=== PATIENT | female | born 1945 | race Hispanic/Latino ===

== ENCOUNTER → 2017-11-21 | Outpatient (CLI) | payer OTHER ==
[~2017-11-21] MED LIST: AMLO5TAB2 PO; CLOP75TA14 PO; EZET10TA26 PO; LEVO50TA4 PO; LOSA100T29 PO; OXYB5TAB PO; PANT40TA25 PO
== END | disposition home or self-care (01) ==
LOC: RAH 15:38
PROVIDERS: ATTEND Family Medicine
DX: Z12.31 Encounter for screening mammogram for malignant neoplasm of breast (principal)
CPT/HCPCS: 77067

== ENCOUNTER 2018-01-24 06:34 | Inpatient (IN) | payer OTHER ==
[~2018-01-24] VITALS: Ht 149.9 cm; Wt 68.7 kg
[2018-01-24] VITALS (15 sets, daily range): BP systolic 94–126; BP diastolic 42–57
[2018-01-24] MEDS ORDERED: ACETAMINOPHEN 325 MG TAB ONE ×2 (07:09→20:45)
[2018-01-24 07:15] LABS: BASOPHILS % (AUTO) 0.5 % (0.0-5.0); EOSINOPHILS % (AUTO) 0.2 % (0.0-8.0); HEMATOCRIT 33.1 % (36-48); LYMPHOCYTES % (AUTO) 21.9 % (21.0-51.0); MEAN CORPUSCULAR HEMOGLOBIN 30.8 pg (27.0-33.0); MEAN CORPUSCULAR HGB CONC 34.1 g/dL (32.0-36.0); MEAN CORPUSCULAR VOLUME 90.4 fL (79-99); NEUTROPHILS % (AUTO) 76.4 % (40.0-77.0); PLATELET COUNT (AUTO) 239 K/uL (130-400); RED BLOOD CELL COUNT(AUTO) 3.66 MIL/uL (4.00-5.50); RED CELL DISTRIBUTION WIDTH 13.4 % (11.0-15.5); WHITE BLOOD COUNT (AUTO) 3.8 K/uL (4.8-10.8)
[2018-01-24 07:17] LABS: APPEARANCE,URINE Clear (CLEAR); BILIRUBIN,URINE Negative (NEGATIVE); COLOR,URINE Yellow (YELLOW); GLUCOSE, URINE (UA) Negative (NEGATIVE); KETONES,URINE Negative (NEGATIVE); LEUKOCYTE ESTERASE ,URINE Small (NEGATIVE); NITRATE,URINE Negative (NEGATIVE); OCCULT BLOOD,URINE Moderate (NEGATIVE); PH,URINE 6.5 (5.0-8.0); PROTEIN,URINE POS 2+ (NEGATIVE); UROBILINOGEN,URINE 0.2 mg/dL (0.2-1.0)
[2018-01-24 07:24] LABS: CREATININE 1.1 mg/dL (0.5-1.5); POTASSIUM 3.7 mmol/L (3.5-5.1)
[2018-01-24 07:27] LABS: INR 1.01 (0.85-1.15); PARTIAL THROMBOPLASTIN TIME 26.3 SEC (26.3-35.5); PROTHROMBIN TIME 10.6 SEC (9.6-11.6)
[2018-01-24] MEDS ORDERED: CEFTRIAXONE SODIUM 1 GM ONE (07:29)
[2018-01-24] MEDS ORDERED: SODIUM CHLORIDE 0.9% 100 ML IV ONE (07:29)
[2018-01-24 07:36] LABS: BACTERIA,URINE Few /HPF (None Seen); SQUAMOUS EPITHELIAL CELL,UR Rare /HPF (0-2)
[2018-01-24 07:39] LABS: ALBUMIN 3.4 g/dL (3.5-5.0); BILIRUBIN,TOTAL 0.8 mg/dL (0.2-1.0); TOTAL PROTEIN, SERUM 6.8 g/dL (6.0-8.3); TROPONIN I 0.16 ng/mL (0.00-0.06)
[2018-01-24] MEDS ORDERED: SODIUM CHLORIDE 0.9% 1000ML 2,000 ML IV ONE (08:40)
[2018-01-24] MEDS ORDERED: SODIUM CHLORIDE 0.9% 250 ML IV ONE (11:11)
[2018-01-24] MEDS ORDERED: NOREPINEPHRINE BITARTRATE 1 MG/1 ML ML IV ONE (11:11)
[2018-01-24] MEDS ORDERED: PHENYLEPHRINE HCL 10 MG/ML 1ML VIAL IV ONE (13:30)
[2018-01-24] MEDS ORDERED: LACTATED RINGERS 1000ML IV ONE (15:30)
[2018-01-24] MEDS ORDERED: LEVO50TA4 PO (18:04)
[2018-01-24] MEDS ORDERED: OXYB5TAB PO (18:04)
[2018-01-24] MEDS ORDERED: PANT40TA25 PO (18:04)
[2018-01-24] MEDS ORDERED: AMLO5TAB2 PO (18:04)
[2018-01-24] MEDS ORDERED: EZET10TA26 PO (18:04)
[2018-01-24] MEDS ORDERED: CLOP75TA14 PO (18:04)
[2018-01-24] MEDS ORDERED: LOSA100T29 PO (18:06)
[2018-01-24] MEDS ORDERED: ONDANSETRON HCL MDV 20ML 2 MG/ML VIAL IVP PRN (20:30)
[2018-01-24] MEDS: SODIUM CHLORIDE 0.9% 1000ML 1,000 ML IV SCH (20:30)
[2018-01-24] MEDS ORDERED: POTASSIUM CHLORIDE 20MEQ/100ML 100 ML IV PRN (20:30)
[2018-01-24] MEDS ORDERED: POTASSIUM CHLORIDE 10% ELIXIR 20 MEQ/15 ML UDCUP PO PRN (20:30)
[2018-01-24] MEDS ORDERED: LIDOCAINE HCL-MPF 1% 2ML VIAL IVP PRN (20:30)
[2018-01-24] MEDS ORDERED: SODIUM CHLORIDE 0.9% 1000ML 1,000 ML IV ONE (20:45)
[2018-01-24] MEDS ORDERED: METRONIDAZOLE 500MG/100ML BAG 100 ML IVPB SCH (21:00)
[2018-01-24] MEDS ORDERED: LEVOFLOXACIN 500 MG/D5W 100 ML 100 ML IV SCH (21:00)
[2018-01-24] MEDS ORDERED: NOREPINEPHRINE 4MG/NS 250ML 250 ML IV SCH (21:15)
[2018-01-24] MEDS ORDERED: LACTATED RINGERS 1000ML 1,000 ML IV SCH (21:15)
[2018-01-24] MEDS ORDERED: SODIUM BICARB 50MEQ 50ML VIAL IV SCH (21:15)
[2018-01-25] VITALS (16 sets, daily range): BP systolic 92–156; BP diastolic 35–101
[2018-01-25] MEDS: SODIUM CHLORIDE 0.9% 1000ML 1,000 ML IV SCH ×2 (05:50→21:53)
[2018-01-25] MEDS: LEVOTHYROXINE 50 MCG TABLET PO SCH (05:51)
[2018-01-25] MEDS ORDERED: CEFTRIAXONE 1GM/D5W 50ML 50 ML IV SCH (08:00)
[2018-01-25] MEDS: ACETAMINOPHEN 325 MG TAB PO PRN ×2 (09:01→20:19)
[2018-01-25] MEDS: CLOPIDOGREL BISULFATE 75 MG TAB PO SCH (09:02)
[2018-01-25] MEDS: CEFTRIAXONE SODIUM 1 GM IVP SCH (09:02)
[2018-01-25 20:32] LABS: MEAN CORPUSCULAR HEMOGLOBIN 31.9 pg (27.0-33.0); MEAN CORPUSCULAR HGB CONC 35.5 g/dL (32.0-36.0); MEAN CORPUSCULAR VOLUME 89.8 fL (79-99); PLATELET COUNT (AUTO) 202 K/uL (130-400); RED BLOOD CELL COUNT(AUTO) 3.56 MIL/uL (4.00-5.50); RED CELL DISTRIBUTION WIDTH 13.4 % (11.0-15.5); WHITE BLOOD COUNT (AUTO) 9.6 K/uL (4.8-10.8)
[2018-01-25 20:49] LABS: ALBUMIN 2.8 g/dL (3.5-5.0); BILIRUBIN,TOTAL 0.3 mg/dL (0.2-1.0); CREATININE 0.8 mg/dL (0.5-1.5); POTASSIUM 3.1 mmol/L (3.5-5.1); TOTAL PROTEIN, SERUM 6.8 g/dL (6.0-8.3)
[2018-01-25 20:50] LABS: LYMPHOCYTES % (MANUAL) 5 % (22-44); MONOCYTES % (MANUAL) 4 % (2-9); PLATELET MORPHOLOGY COMMENT ADEQUATE; REACTIVE LYMPHOCYTES 4 % (0-0); SEGMENTED NEUTROPHILS % 87 % (40-70)
[2018-01-26 04:00] VITALS: BP 142/69
[2018-01-26] MEDS: LEVOTHYROXINE 50 MCG TABLET PO SCH (07:07)
[2018-01-26] MEDS: CEFTRIAXONE SODIUM 1 GM IVP SCH (07:59)
[2018-01-26] MEDS: CLOPIDOGREL BISULFATE 75 MG TAB PO SCH (07:59)
[2018-01-26 08:12] VITALS: BP 143/68
[2018-01-26 11:28] VITALS: BP 146/75
[2018-01-26] MEDS: SODIUM CHLORIDE 0.9% 1000ML 1,000 ML IV SCH (11:37)
== END 2018-01-26 14:00 | disposition home or self-care (01) | DRG 872 ==
LOC: EDH 06:34 → EDHIP 11:28 → 2BH 13:14 → 2AH 01-25 15:49
PROVIDERS: ADMIT Internal Medicine Nephrology; ATTEND Internal Medicine Nephrology
DX: A41.9 Sepsis, unspecified organism (principal); E86.0 Dehydration; D64.9 Anemia, unspecified; N39.0 Urinary tract infection, site not specified; R74.8 Abnormal levels of other serum enzymes; E78.5 Hyperlipidemia, unspecified; I10 Essential (primary) hypertension; Z60.2 Problems related to living alone
CPT/HCPCS: 36415; 71045; 71046; 80053; 81001; 82550; 82553; 83605; 83874; 84484; 85025; 85610; 85730; 87040; 87088; 87186; 93005; A4218; J0696; J2370; J3490; J7030

== ENCOUNTER → 2018-02-17 | Outpatient (CLI) | payer OTHER | END | disposition home or self-care (01) | LOC: SHCH 12:20 | PROVIDERS: ATTEND Internal Medicine Cardiovascular Disease | DX: I73.9 Peripheral vascular disease, unspecified (principal); I87.2 Venous insufficiency (chronic) (peripheral); R06.02 Shortness of breath | CPT/HCPCS: 93306; 93925; 93970 ==

== ENCOUNTER → 2018-07-21 | Outpatient (CLI) | payer OTHER ==
[~2018-07-21] MED LIST changes: -AMLO5TAB2 PO; +AMLO5TAB7 PO; +ASPI-555 PO; +CHOL400C9 PO; +LOSA100T20 PO; -LOSA100T29 PO; +UBID10CA6 PO
== END | disposition home or self-care (01) ==
LOC: SHCH 10:41
PROVIDERS: ATTEND Internal Medicine Cardiovascular Disease
DX: I73.9 Peripheral vascular disease, unspecified (principal)
CPT/HCPCS: 93925

== ENCOUNTER → 2018-11-23 | Outpatient (CLI) | payer OTHER ==
[~2018-11-23] MED LIST changes: -AMLO5TAB7 PO; +AMLO5TAB9 PO; -LOSA100T20 PO; +LOSA100T58 PO
== END | disposition home or self-care (01) ==
LOC: RAH 10:07
PROVIDERS: ATTEND Family Medicine
DX: Z12.31 Encounter for screening mammogram for malignant neoplasm of breast (principal)
CPT/HCPCS: 77067

== ENCOUNTER → 2018-12-01 | Outpatient (CLI) | payer OTHER | END | disposition home or self-care (01) | LOC: SHCH 14:39 | PROVIDERS: ATTEND Internal Medicine Cardiovascular Disease | DX: I73.9 Peripheral vascular disease, unspecified (principal) | CPT/HCPCS: 93925 ==

== ENCOUNTER → 2018-12-18 | Outpatient (CLI) | payer OTHER | END | disposition home or self-care (01) | LOC: SHCH 07:38 | PROVIDERS: ATTEND Internal Medicine Cardiovascular Disease | DX: I71.4 Abdominal aortic aneurysm, without rupture (principal) | CPT/HCPCS: 93978 ==

== ENCOUNTER 2019-07-16 19:41 | Observation (INO) | payer OTHER ==
[~2019-07-16 19:41] MED LIST changes: -EZET10TA26 PO; +EZET10TA48 PO; -OXYB5TAB PO; +OXYB5TAB4 PO
[2019-07-16 20:01] LABS: BASOPHILS % (AUTO) 0.7 % (0.0-5.0); EOSINOPHILS % (AUTO) 1.1 % (0.0-8.0); HEMATOCRIT 37.9 % (36-48); LYMPHOCYTES % (AUTO) 28.6 % (21.0-51.0); MEAN CORPUSCULAR HEMOGLOBIN 31.3 pg (27.0-33.0); MEAN CORPUSCULAR HGB CONC 34.2 g/dL (32.0-36.0); MEAN CORPUSCULAR VOLUME 91.7 fL (79-99); MONOCYTES % (AUTO) 8.8 % (3.0-13.0); NEUTROPHILS % (AUTO) 60.8 % (40.0-77.0); NUCLEATED RED BLOOD CELLS 0.2 % (0.0-0.19); PLATELET COUNT (AUTO) 261 K/uL (130-400); RED BLOOD CELL COUNT(AUTO) 4.14 MIL/uL (4.00-5.50); RED CELL DISTRIBUTION WIDTH 13.2 % (11.0-15.5); WHITE BLOOD COUNT (AUTO) 9.8 K/uL (4.8-10.8)
[2019-07-16 20:11] LABS: INR 0.96 (0.85-1.15); PARTIAL THROMBOPLASTIN TIME 26.6 SEC (26.3-35.5); PROTHROMBIN TIME 10.1 SEC (9.6-11.6)
[2019-07-16 20:21] LABS: CREATININE 1.2 mg/dL (0.5-1.5); POTASSIUM 3.9 mmol/L (3.5-5.1)
[2019-07-16] MEDS ORDERED: ASPIRIN 325 MG TABLET ONE (20:24)
[2019-07-16] MEDS ORDERED: NITROGLYCERIN 1GM/1 INCH PACKET TD ONE (20:25)
[2019-07-16 20:26] LABS: BILIRUBIN,TOTAL 0.7 mg/dL (0.2-1.0); TOTAL PROTEIN, SERUM 8.8 g/dL (6.0-8.3)
[2019-07-16 20:30] LABS: B-TYPE NATRIURETIC PEPTIDE 50 pg/mL (0-100)
[2019-07-16 21:08] LABS: APPEARANCE,URINE Clear (CLEAR); BILIRUBIN,URINE Negative (NEGATIVE); COLOR,URINE Yellow (YELLOW); GLUCOSE, URINE (UA) Negative (NEGATIVE); KETONES,URINE Negative (NEGATIVE); LEUKOCYTE ESTERASE ,URINE Small (NEGATIVE); NITRATE,URINE Negative (NEGATIVE); OCCULT BLOOD,URINE Small (NEGATIVE); PH,URINE 5.5 (5.0-8.0); PROTEIN,URINE Negative (NEGATIVE); UROBILINOGEN,URINE 0.2 mg/dL (0.2-1.0)
[2019-07-16 21:21] LABS: BACTERIA,URINE Few /HPF (None Seen); MUCUS,URINE None Seen LPF (None Seen)
[2019-07-16] MEDS ORDERED: POTASSIUM CHLORIDE 20 MEQ ERTAB PO PRN (21:30)
[2019-07-16] MEDS ORDERED: DiphenhydrAMINE HCL 50 MG/ML VIAL IV PRN (21:30)
[2019-07-16] MEDS ORDERED: POTASSIUM CHLORIDE 10% ELIXIR 20 MEQ/15 ML UDCUP PO PRN (21:30)
[2019-07-16] MEDS ORDERED: NITROGLYCERIN 0.4 MG SL TAB SL PRN (21:30)
[2019-07-16] MEDS ORDERED: ONDANSETRON HCL 4 MG/2 ML VIAL IV PRN (21:30)
[2019-07-16] MEDS ORDERED: MORPHINE SULFATE 2 MG/ML 1ML SYG IV PRN (21:30)
[2019-07-16] MEDS ORDERED: MAGNESIUM 2GM PREMIX 50ML 50 ML IV PRN (21:30)
[2019-07-16] MEDS ORDERED: CEFTRIAXONE SODIUM 1 GM IVP SCH (21:30)
[2019-07-16] MEDS ORDERED: POTASSIUM CHLORIDE 20MEQ/100ML 100 ML IV PRN (21:30)
[2019-07-16] MEDS ORDERED: ACETAMINOPHEN 325 MG TAB PO PRN (21:30)
[2019-07-16] MEDS ORDERED: LACTULOSE 20 GM/30 ML UDCUP PO PRN (21:30)
[2019-07-16] MEDS ORDERED: DIPHENHYDRAMINE HCL 25 MG CAPSULE PO PRN (21:30)
[2019-07-16] MEDS ORDERED: HYDRALAZINE HCL 20 MG/ML VIAL IV PRN (21:30)
[2019-07-17] MEDS ORDERED: INSULIN HUMULIN R 100 UNIT/ML 3ML SQ SCH (07:30)
== END 2019-07-16 22:38 | disposition left against medical advice (07) ==
LOC: EDH 19:41 → EDHIP 21:20 → 3DH 21:53
PROVIDERS: ADMIT Internal Medicine Critical Care Medicine; ATTEND Internal Medicine Critical Care Medicine
DX: R07.89 Other chest pain (principal); I25.10 Atherosclerotic heart disease of native coronary artery without angina pectoris; I10 Essential (primary) hypertension; E78.5 Hyperlipidemia, unspecified; E03.9 Hypothyroidism, unspecified; Z95.5 Presence of coronary angioplasty implant and graft; Z87.891 Personal history of nicotine dependence; Z79.899 Other long term (current) drug therapy
CPT/HCPCS: 36415; 71045; 80053; 81001; 82550; 83605; 83880; 85025; 85610; 85730; 87040 ×2; 87077; 87088; 87186; 87804 ×2; 93005; 99284; G0378

== ENCOUNTER → 2019-09-22 | Outpatient (CLI) | payer OTHER ==
[~2019-09-22] MED LIST changes: +OXYB-66 PO; -OXYB5TAB4 PO
== END | disposition home or self-care (01) ==
LOC: SHCH 14:46
PROVIDERS: ATTEND Internal Medicine Cardiovascular Disease
DX: I70.203 Unspecified atherosclerosis of native arteries of extremities, bilateral legs (principal); I65.23 Occlusion and stenosis of bilateral carotid arteries
CPT/HCPCS: 93880; 93925

== ENCOUNTER → 2019-11-24 | Outpatient (CLI) | payer OTHER | END | disposition home or self-care (01) | LOC: SHCH 07:52 | PROVIDERS: ATTEND Internal Medicine Cardiovascular Disease | DX: I70.0 Atherosclerosis of aorta (principal); I71.4 Abdominal aortic aneurysm, without rupture | CPT/HCPCS: 93978 ==

== ENCOUNTER → 2019-11-26 | Outpatient (CLI) | payer OTHER | END | disposition home or self-care (01) | LOC: RAH 08:04 | PROVIDERS: ATTEND Family Medicine | DX: N28.1 Cyst of kidney, acquired (principal) | CPT/HCPCS: 76700 ==

== ENCOUNTER → 2019-12-02 | Outpatient (CLI) | payer OTHER ==
[~2019-12-02] MED LIST changes: +AMLO-257 PO; -AMLO5TAB9 PO; -ASPI-555 PO; +ASPI-556 PO; -PANT40TA25 PO; +PANT40TA55 PO
== END | disposition home or self-care (01) ==
LOC: RAH 08:38
PROVIDERS: ATTEND Family Medicine
DX: Z12.31 Encounter for screening mammogram for malignant neoplasm of breast (principal)
CPT/HCPCS: 77067

== ENCOUNTER → 2020-06-06 | Outpatient (CLI) | payer OTHER | END | disposition home or self-care (01) | LOC: RAH 10:23 | PROVIDERS: ATTEND Family Medicine | DX: K40.90 Unilateral inguinal hernia, without obstruction or gangrene, not specified as recurrent (principal); K57.30 Diverticulosis of large intestine without perforation or abscess without bleeding; N28.9 Disorder of kidney and ureter, unspecified; R63.4 Abnormal weight loss | CPT/HCPCS: 74176 ==

== ENCOUNTER → 2020-10-12 | Outpatient (CLI) | payer OTHER | END | disposition home or self-care (01) | LOC: SHCH 14:07 | PROVIDERS: ATTEND Internal Medicine Cardiovascular Disease | DX: I73.9 Peripheral vascular disease, unspecified (principal) | CPT/HCPCS: 93925 ==

== ENCOUNTER → 2021-02-12 | Outpatient (CLI) | payer OTHER ==
[2021-02-12 09:05] LABS: BASOPHILS % (AUTO) 0.9 % (0.0-5.0); EOSINOPHILS % (AUTO) 1.6 % (0.0-8.0); LYMPHOCYTES % (AUTO) 34.4 % (21.0-51.0); MEAN CORPUSCULAR HEMOGLOBIN 29.6 pg (27.0-33.0); MEAN CORPUSCULAR HGB CONC 32.2 g/dL (32.0-36.0); MEAN CORPUSCULAR VOLUME 91.9 fL (79-99); MONOCYTES % (AUTO) 6.4 % (3.0-13.0); NEUTROPHILS % (AUTO) 56.2 % (40.0-77.0); PLATELET COUNT (AUTO) 270 K/uL (130-400); RED BLOOD CELL COUNT(AUTO) 4.46 MIL/uL (4.00-5.50); RED CELL DISTRIBUTION WIDTH 13.3 % (11.0-15.5); WHITE BLOOD COUNT (AUTO) 5.8 K/uL (4.8-10.8)
[2021-02-12 09:12] LABS: CREATININE 0.8 mg/dL (0.5-1.5)
== END | disposition home or self-care (01) ==
LOC: LAB 08:33
PROVIDERS: ATTEND Urology
DX: R31.29 Other microscopic hematuria (principal)
CPT/HCPCS: 36415; 80048; 85025

== ENCOUNTER → 2021-02-19 | Outpatient (CLI) | payer OTHER ==
[~2021-02-19] MED LIST changes: +IOHEXOL 350 MG/ML 100ML INFUS..BTL IV ONE
== END | disposition home or self-care (01) ==
LOC: RAH 07:15
PROVIDERS: ATTEND Urology
DX: N26.1 Atrophy of kidney (terminal) (principal); N28.1 Cyst of kidney, acquired; K57.30 Diverticulosis of large intestine without perforation or abscess without bleeding; K40.90 Unilateral inguinal hernia, without obstruction or gangrene, not specified as recurrent
CPT/HCPCS: 74178; Q9967

== ENCOUNTER 2021-12-08 17:31 | Emergency (ER) | payer OTHER, MEDICARE ==
[~2021-12-08] VITALS: Ht 137.2 cm; Wt 66.2 kg
[~2021-12-08 17:31] MED LIST changes: -IOHEXOL 350 MG/ML 100ML INFUS..BTL IV ONE
[2021-12-08] MEDS ORDERED: TRAMADOL HCL 50 MG TABLET PO ONE (18:30)
[2021-12-08] MEDS ORDERED: KETOROLAC 15MG/ML VIAL (15MG/ML) IM ONE (18:30)
[2021-12-08 19:19] VITALS: BP 134/63
[2021-12-08] MEDS ORDERED: TRAM50TA2 PO (19:22)
== END 2021-12-08 19:34 | disposition home or self-care (01) ==
LOC: EDH 17:31
DX: M25.511 Pain in right shoulder (principal); I10 Essential (primary) hypertension; Z79.1 Long term (current) use of non-steroidal anti-inflammatories (NSAID); Z79.82 Long term (current) use of aspirin; Z79.899 Other long term (current) drug therapy
CPT/HCPCS: 73030; 96372; 99283; J1885

== ENCOUNTER → 2021-12-28 | Outpatient (CLI) | payer OTHER ==
[~2021-12-28] MED LIST changes: +TRAM50TA2 PO
== END | disposition home or self-care (01) ==
LOC: RAH 10:17
PROVIDERS: ATTEND Family Medicine
DX: Z12.31 Encounter for screening mammogram for malignant neoplasm of breast (principal)
CPT/HCPCS: 77067

== ENCOUNTER → 2022-01-30 | Outpatient (CLI) | payer OTHER, MEDICARE | END | disposition home or self-care (01) | LOC: SHCH 09:46 | PROVIDERS: ATTEND Internal Medicine Cardiovascular Disease | DX: I70.293 Other atherosclerosis of native arteries of extremities, bilateral legs (principal); I65.23 Occlusion and stenosis of bilateral carotid arteries | CPT/HCPCS: 93880; 93925 ==

== ENCOUNTER → 2022-04-15 | Outpatient (CLI) | payer OTHER, MEDICARE ==
[~2022-04-15] VITALS: Ht 147.3 cm; Wt 67.6 kg
[~2022-04-15] MED LIST changes: +REGADENOSON 0.4 MG/5 ML PF SYG IVP SCH
== END | disposition home or self-care (01) ==
LOC: SHCH 08:19
PROVIDERS: ATTEND Internal Medicine Cardiovascular Disease
DX: R07.9 Chest pain, unspecified (principal)
CPT/HCPCS: 78452; 96374; 93017; J2785; A9500 ×2

== ENCOUNTER → 2022-05-07 | Outpatient (CLI) | payer OTHER, MEDICARE ==
[~2022-05-07] MED LIST changes: -REGADENOSON 0.4 MG/5 ML PF SYG IVP SCH
== END | disposition home or self-care (01) ==
LOC: RAH 14:09
PROVIDERS: ATTEND Family Medicine
DX: M47.815 Spondylosis without myelopathy or radiculopathy, thoracolumbar region (principal); R91.1 Solitary pulmonary nodule; N28.1 Cyst of kidney, acquired; I25.10 Atherosclerotic heart disease of native coronary artery without angina pectoris; K57.92 Diverticulitis of intestine, part unspecified, without perforation or abscess without bleeding
CPT/HCPCS: 71250

== ENCOUNTER → 2022-12-14 | Outpatient (CLI) | payer OTHER, MEDICARE ==
[~2022-12-14] MED LIST changes: +CLOP-31 PO; -CLOP75TA14 PO
== END | disposition home or self-care (01) ==
LOC: SHCH 15:12
PROVIDERS: ATTEND Internal Medicine Cardiovascular Disease
DX: I87.2 Venous insufficiency (chronic) (peripheral) (principal)
CPT/HCPCS: 93970

== ENCOUNTER → 2022-12-30 | Outpatient (CLI) | payer OTHER, MEDICARE ==
[~2022-12-30] MED LIST changes: -LOSA100T58 PO; +LOSA100T59 PO
== END | disposition home or self-care (01) ==
LOC: RAH 09:40
PROVIDERS: ATTEND Family Medicine
DX: Z12.31 Encounter for screening mammogram for malignant neoplasm of breast (principal)
CPT/HCPCS: 77067

== ENCOUNTER → 2023-05-03 | Outpatient (CLI) | payer OTHER, MEDICARE | END | disposition home or self-care (01) | LOC: SHCH 12:43 | PROVIDERS: ATTEND Internal Medicine Cardiovascular Disease | DX: I70.203 Unspecified atherosclerosis of native arteries of extremities, bilateral legs (principal) | CPT/HCPCS: 93925 ==

== ENCOUNTER → 2023-07-21 | Outpatient (CLI) | payer OTHER, MEDICARE | END | disposition home or self-care (01) | LOC: RAH 09:16 | PROVIDERS: ATTEND Urology | DX: N28.1 Cyst of kidney, acquired (principal) | CPT/HCPCS: 76770 ==

== ENCOUNTER → 2024-01-23 | Outpatient (CLI) | payer OTHER, MEDICARE | END | disposition home or self-care (01) | LOC: RAH 09:06 | PROVIDERS: ATTEND Family Medicine | DX: Z12.31 Encounter for screening mammogram for malignant neoplasm of breast (principal); R92.323 Mammographic fibroglandular density, bilateral breasts | CPT/HCPCS: 77067 ==

== ENCOUNTER → 2024-02-25 | Outpatient (CLI) | payer OTHER, MEDICARE | END | disposition home or self-care (01) | LOC: SHCH 07:48 | PROVIDERS: ATTEND Internal Medicine Cardiovascular Disease | DX: I70.203 Unspecified atherosclerosis of native arteries of extremities, bilateral legs (principal); I71.40 Abdominal aortic aneurysm, without rupture, unspecified | CPT/HCPCS: 93925; 93978 ==

== ENCOUNTER → 2024-08-31 | Outpatient (CLI) | payer OTHER, MEDICARE | END | disposition home or self-care (01) | LOC: SHCH 12:36 | PROVIDERS: ATTEND Internal Medicine Cardiovascular Disease | DX: I73.9 Peripheral vascular disease, unspecified (principal) | CPT/HCPCS: 93925 ==

== ENCOUNTER → 2024-10-15 | Outpatient (CLI) | payer OTHER, MEDICARE ==
[2024-10-15 15:36] LABS: CREATININE 0.8 mg/dL (0.5-1.0); POTASSIUM 4.3 mmol/L (3.5-5.1)
== END | disposition home or self-care (01) ==
LOC: LAB 14:23
PROVIDERS: ATTEND Internal Medicine Cardiovascular Disease
DX: I73.9 Peripheral vascular disease, unspecified (principal); I71.40 Abdominal aortic aneurysm, without rupture, unspecified
CPT/HCPCS: 36415; 80048

== ENCOUNTER → 2025-01-24 | Outpatient (CLI) | payer OTHER, MEDICAID ==
--- NOTE | 2025-01-27 09:40 | HMCIMG ---
Exam Type: MAMMO SCREENING BILATERAL Clinical Information: ANNUAL SCREENING Comparison: January 23, 2024 Technique: Mammogram with CAD was performed with CC and MLO projections. CAD shows no worrisome regions. FINDINGS: The breasts are heterogeneously dense, which may obscure small masses. No dominant mass or suspicious microcalcification identified. There is no nipple retraction or skin thickening. Benign-appearing calcifications are seen. CAD shows no worrisome regions. IMPRESSION: 1. No mammographic signs of malignancy. 2. Routine follow-up recommended. CATEGORY 2: BENIGN FINDINGS Note: A negative x-ray should not delay biopsy if a dominant or clinically suspicious mass is present, since 8-10% of cancers are not identified by mammography. Dense breasts may obscure an underlying neoplasm.
== END | disposition home or self-care (01) ==
LOC: RAH 10:07
PROVIDERS: ATTEND Family Medicine
DX: Z12.31 Encounter for screening mammogram for malignant neoplasm of breast (principal); R92.333 Mammographic heterogeneous density, bilateral breasts
CPT/HCPCS: 77067